=== PATIENT | male | born 1955 | race Caucasian/White ===

== ENCOUNTER → 2019-05-20 | Outpatient (CLI) | payer OTHER ==
[~2019-05-20] MED LIST: ACETAMINOPHEN325 M1 PO; AMBIEN 5 MG TABL5 MG PO; AMLODIPINE BESY10 MG PO; AMLODIPINE BESYL5 MG PO; ASPIRIN EC81 M1 PO; ATENOLOL 25 MG25 M1 PO; ATIVAN1 MG PO; BENZTROPINE MES1 MG PO; CELEXA 10 MG TA10 M1 PO; CHLORPROMAZINE100 MG PO; COLACE100 MG PO; DESYREL50 MG PO; DIAZEPAM 5 MG5 M1; FINASTERIDE5 MG OR; FLOMAX OR; GUAIF-DM-PSE S120 ML; HALDOL PO; HALDOL5 MG/1 ML IM; HALOPERIDOL 2 MG2 M1 OR; HYDROCODON-ACE1 EACH; MACROBID 100 M100 M1 PO; METOCLOPRAMIDE10 MG OR; MIRALAX255 GM PO; MOBIC15 MG PO; MULTIVITAMINS PO; NASACORT; OXCARBAZEPINE300 M1 PO; PHENERGAN 25 MG25 M1 PO; PROTONIX40 M2 OR; REMERON15 MG OR; REMERON15 MG PO; RESTORIL30 MG; ROZEREM 8 MG TAB8 MG PO; SEROQUEL 100 M100 MG PO; TRAMADOL 50 MG50 MG PO; TRAMADOL HCL50 MG PO; VITAMIN B-12100 MC1 PO; VITAMIN D250000 UNIT PO; ZYPREXA 10 MG T10 MG PO; ZYRTEC10 M2 PO
== END ==
LOC: CAT 10:32
DX: Z13.6 Encounter for screening for cardiovascular disorders (principal); E78.00 Pure hypercholesterolemia, unspecified; I25.10 Atherosclerotic heart disease of native coronary artery without angina pectoris

== ENCOUNTER → 2020-03-27 | Outpatient (CLI) | payer OTHER ==
[~2020-03-27] VITALS: Ht 180.3 cm; Wt 86.2 kg
[~2020-03-27] MED LIST changes: +AFRIN15 ML NASAL; +AMARYL2 M1 PO; +AMBIEN 10 MG TA10 MG PO; +DIFLUCAN200 MG PO; +EYE HEALTH ADU1 EACH PO; +FAMOTIDINE 10 M10 MG PO; +FLORANEX TABLE1 EACH PO; +LOPRESSOR50 MG PO; +MELATONIN10 M3 PO; +METFORMIN HCL500 M3 PO; +NORVASC10 MG PO; +PRINIVIL20 MG PO; +PROPECIA1 MG PO; +PULMICORT0.5 MG/2 M INH; +REMERON15 M2 PO; +ROSUVASTATIN CA10 MG PO; +SUPER THERAVIT1 EACH PO; +THERMACARE HEA1 EACH TOP; +VALERIAN ROOT100 MG PO; +VITAMIN B12-FO1 EAC1 PO; +VITAMIN D3125 MC2 PO; +VITAMIN E PO; +ZINC PO; +ZYRTEC10 M5 PO
--- NOTE | ~2020-03-27 | HPC ---
[facility] [place] [address] PAIN MANAGEMENT CONSULTATION Name: NAILA NAVARRO Room #: REG CL Higinio.#: [id number] Admission: 03/27/20 Attend Phys: Noel Rollins MD Discharge: Date of : 57 Report #: [id number] THIS REPORT FOR: cc: Jeramy Khoury MD, Neal A. MD Morgan,Noel Pacheco MD ~ CC: Jeramy Rollins DATE OF SERVICE: 03/27/2020 CHIEF COMPLAINT: Hypersensitivity on the distal portion of the index finger of the right hand with neuropathic pain; osteoarthritis, hands. HISTORY OF PRESENT ILLNESS: The patient presents to the pain clinic today at the request of Dr. Khoury for an assessment. He is a 64-year-old gentleman who complains primarily of pain in 1 small area approximately 1 cm in diameter. It is right on the lateral aspect of his index finger at the distal phalanx. It overlies the distal interphalangeal joint and has tenderness. He described it as joint pain and it may well be arthritic but it also has a high sensitivity consistent with neuropathy. He describes it as pins and needles. It can come at any time during the day with a severe shock. Overall daily pain is a 7-8/10. He was sent to Dr. Jacklyn Arauz, who had no suggestions and she sent him to Dr. Rosado. He saw Dr. Rosado's nurse in the office who started him on a very low dose of gabapentin, which has been tolerated, but has not been helpful. He has had no other treatments. He has some topical Voltaren at home, but has used it only intermittently. He is on a number of medications, which were reviewed. MEDICATIONS: Metformin, amlodipine, metoprolol, lisinopril, glimepiride, rosuvastatin, mirtazapine, zolpidem, melatonin, acidophilus, B12, D3, multivitamins, cetirizine, budesonide, oxymetazoline, famotidine, fluconazole, Z supplement, finasteride, zinc, Adult 50+ Eye Health and valerian root. ALLERGIES: To KAVITHA. PAST MEDICAL HISTORY: Significant for a left ulnar nerve release and he wears braces on two of his fingers of the left hand because he says it hyperextend. The braces are tender and bothersome, but he seems to want to wear them anyway. He has good function of the left hand and fingers even in the absence of these metal splints. He has a history of diabetes, hypertension, gastritis. REVIEW OF SYSTEMS: Positive for hearing loss, chronic sinusitis, frequent urination and nocturia. He suffered from depression and insomnia. [facility] [address] [place] [address] PAIN MANAGEMENT CONSULTATION Name: NAILA NAVARRO Room #: REG ROSEANN Robles#: [id number] Admission: 03/27/20 Attend Phys: Noel Rollins MD Discharge: Date of : 57 Report #: [id number] SOCIAL HISTORY: He is retired. 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 Does not smoke. Drinks alcohol occasionally in a social setting. He lives alone. PHYSICAL EXAMINATION: GENERAL: Pleasant gentleman who is wearing a mask due to COVID restrictions. He is alert and oriented. Height is 5 feet 11 inches, weight 150. VITAL SIGNS: Blood pressure is 138/81, heart rate 81, respirations 20, O2 sat 100, BMI is 25.6. CHEST: Clear. His cardiac rhythm was normal. NECK: Neck range of motion is good. EXTREMITIES: He has some mild crepitus, but this is not exacerbating any of the pain to his left or right hand. 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 He has good movements of the forearm with pronation and supination. There is no restriction in wrist motion on either hand. Examination of the right hand in the area of concern reveals no obvious malformations, no swelling, no redness, no tenderness, no rash, no scarring in that region. He has good range of motion of the proximal and distal interphalangeal joint with tenderness of the distal joint. There is no obvious osteophyte extension. There is some allodynia and hypersensitivity in the area described above. This causes him to withdraw. IMPRESSION: Proximal phalangeal hypersensitivity/arthritis. RECOMMENDATIONS: He is already on a lot of oral medicines, I just assume not to increase his gabapentin given his other centrally acting medicines. I recommended that he try diclofenac cream 3-4 times a day and gave him strict instructions on how to use it to make sure that he uses it on a daily basis before we give up on an anti-inflammatory. The use of a topical anti-inflammatory will keep him from putting him on more medicine. If that is unaffected, I do not think that gabapentin might be a reasonable choice, but may need to be used at a higher dose. We could also use some topical neuropathic creams, but they are quite expensive. Followup visit is scheduled in 1-2 months. By: [id number] Noel Rollins MD /nt
[2020-03-27 12:53] VITALS: BP 138/81
--- NOTE | 2020-03-27 13:48 | NUR ---
Pain Clinic Assessment: 1. History of Osteoarthritis: Left Upper Extremity Right Upper Extremity History of Rheumatoid Arthritis: Not Applicable 2. Height: 5 ft. 11 in. 180.3 cm. Weight: 190.0 lb. oz. 86.184 kg. Patient's BMI: 26.5 3. Vital Signs: BP: 138/81 Pulse: 81 Resp: 20 Temp: 02 Sat: 100 ECG Mon: 4. Pain Intensity: 7-8 5. Fall Risk: Dizziness: N Needs help standing or walking: N Fallen in the last 3 months: N Fall risk comments: 6. Patient on Blood Thinner: None 7. History of Hypertension: Y 8. Opioid Therapy greater than 6 weeks: N Opiate Contract Signed: 9. Risk Assessment Tool Provided: LOW 10. Functional Assessment Tool: 39 11. Recreational Drug Use: Never Drug Type: Tobacco Use: Never Smoker Tobacco Type: Amount or Packs/day: How Many Years: Alcohol Use: Unknown Frequency: Monthly Quant: 1
== END ==
LOC: PAIN 07:08
PROVIDERS: ATTEND Anesthesiology Pain Medicine
DX: M13.89 Other specified arthritis, multiple sites (principal)